=== PATIENT | female | born 1960 | race African-American/Black ===

== ENCOUNTER 2016-12-23 10:22 | Emergency (ER) | payer OTHER ==
[2016-12-23 10:36] VITALS: TEMP 98.1; BMI 28.3
--- NOTE | 2016-12-23 11:43 | PDOC ---
History of Present Illness - General History Source: Patient Exam Limitations: No Limitations - History of Present Illness Initial Comments: 12/23/16 12:01 56 y/o F with a PMHx of anxiety presents to the ED with worsening left lower extremity swelling and pain for a week. She reports that her leg is warm to touch and itchy. 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 At PCPs office she had a US to rule out DVT, which came back normal. She also had an XR done, which was normal. Patient reports the pain and swelling began at her left knee and moved down to her foot. She denies recent travel. She denies SOB, chest pain, palpitations. Denies fever chills. Denies headache, dizziness. <Danni Stapleton - Last Filed: 12/23/16 14:56> <Arina Martinez - Last Filed: 12/26/16 09:34> - General Chief Complaint: Edema Stated Complaint: LEGS SWELLING Time Seen by Provider: 12/23/16 11:28 Past History <Danni Stapleton - Last Filed: 12/23/16 14:56> - Past Medical History Psychiatric Problems: Yes (ANXEITY) - Suicide/Smoking/Psychosocial Hx Smoking History: Never smoked Have you smoked in the past 12 months: No Information on smoking cessation initiated: No Hx Alcohol Use: No Drug/Substance Use Hx: No <Arina Martinez - Last Filed: 12/26/16 09:34> - Past Medical History Allergies/Adverse Reactions: Allergies Allergy/AdvReac Type Severity Reaction Status Date / Time gluten Allergy Verified 12/23/16 10:31 pineapple Allergy Verified 12/23/16 10:31 Home Medications: Ambulatory Orders Clonazepam 0.5 mg PO HS 12/23/16 Naproxen [Naprosyn -] 500 mg PO BID 12/23/16 Review of Systems - Review of Systems Able to Perform ROS?: Yes Comments:: 12/23/16 12:02 GENERAL/CONSTITUTIONAL: No fever or chills. No weakness. HEAD, EYES, EARS, NOSE AND THROAT: No change in vision. No ear pain or discharge. No sore throat. CARDIOVASCULAR: No chest pain or shortness of breath. RESPIRATORY: No cough, wheezing, or hemoptysis. GASTROINTESTINAL: No nausea, vomiting, diarrhea or constipation. GENITOURINARY: No dysuria, frequency, or change in urination. MUSCULOSKELETAL: (+) left lower extremity pain and swelling. No neck or back pain. SKIN: (+) left lower extremity warmth and itchiness. No rash NEUROLOGIC: No headache, vertigo, loss of consciousness, or change in strength/ sensation. ENDOCRINE: No increased thirst. No abnormal weight change. HEMATOLOGIC/LYMPHATIC: No anemia, easy bleeding, or history of blood clots. ALLERGIC/IMMUNOLOGIC: No hives or skin allergy. <Fanny Stapletonobamerica Leigh - Last Filed: 12/23/16 14:56> *Physical Exam - Vital Signs Last Vital Signs Temp Pulse Resp BP Pulse Ox 98.1 F 66 18 115/57 100 12/23/16 10:33 12/23/16 10:33 12/23/16 10:33 12/23/16 10:33 12/23/16 10:33 - Physical Exam Comments: 12/23/16 12:10 GENERAL: Awake, alert, and fully oriented, in no acute distress HEAD: No signs of trauma EYES: PERRLA, EOMI, sclera anicteric, conjunctiva clear ENT: Auricles normal inspection, hearing grossly normal, nares patent, oropharynx clear without exudates. Moist mucosa NECK: Normal ROM, supple, no lymphadenopathy, JVD, or masses LUNGS: Breath sounds equal, clear to auscultation bilaterally. No wheezes, and no crackles HEART: Regular rate and rhythm, normal S1 and S2, no murmurs, rubs or gallops ABDOMEN: Soft, nontender, normoactive bowel sounds. No guarding, no rebound. No masses EXTREMITIES: LLE 2+ pitting edema to the knee with calf tenderness. DP pulses intact. Normal range of motion. No clubbing or cyanosis. No cords, erythema. NEUROLOGICAL: Cranial nerves II through XII grossly intact. Normal speech, normal gait SKIN: Warm, Dry, normal turgor, no rashes or lesions noted. <Danni Stapleton - Last Filed: 12/23/16 14:56> - Vital Signs Last Vital Signs Temp Pulse Resp BP Pulse Ox 98.1 F 66 18 115/57 100 12/23/16 10:33 12/23/16 10:33 12/23/16 10:33 12/23/16 10:33 12/23/16 10:33 <Arina Martinez - Last Filed: 12/26/16 09:34> ED Treatment Course - LABORATORY CBC & Chemistry Diagram: 12/23/16 11:35 12/23/16 11:35 - ADDITIONAL ORDERS Additional order review: 12/23/16 11:35 RBC 4.75 MCV 83.0 MCHC 32.3 RDW 13.1 MPV 7.3 L Neutrophils % 64.1 Lymphocytes % 21.3 Monocytes % 8.5 Eosinophils % 5.0 H Basophils % 1.1 - RADIOLOGY Radiograph Interpretation: 12/23/16 12:59 Vascular Study - Left Leg Reported by Dr. Renny Mayo Impression: There is no evidence of deep venous thrombosis in the left lower extremity. 12/23/16 14:57 Abdomen & Pelvis CT Reported by Dr. Ines Marie Impression: 1. No evidence of retroperitoneal mass compressing the left external iliac or common iliac vein. 2. Normal appendix. No evidence of intestinal obstruction or acute diverticulitis. Small hiatal hernia. 3. Cholelithiasis and probable gallbladder sludge. No CT evidence of acute cholecystitis or biliary ductal dilatation. <Danni Stapleton - Last Filed: 12/23/16 14:56> - LABORATORY CBC & Chemistry Diagram: 12/23/16 11:35 12/23/16 11:35 <Arina Martinez - Last Filed: 12/26/16 09:34> Medical Decision Making - Medical Decision Making Pt with previous negative duplex. Repeat exam ordered in ED, negative for DVT. At this point I discussed results with her and opted for CT a/p to r/o any abdominal mass that was potentially obstructing venous flow. CT a/p was negative. Unclear what is causing the edema. Counseled her to f/u closely with PMD and vascular for further evaluation. Also counseled her to return to ED if severe pain, worsening swelling, change in temperature or color of extremity, or any other concerns. <Arina Martinez - Last Filed: 12/26/16 09:34> *DC/Admit/Observation/Transfer - Attestations Scribe Attestion: 12/23/16 12:02 Documentation prepared by Danni Stapleton, acting as medical instrument cable fabricator for Arina Martinez MD. <Danni Stapleton - Last Filed: 12/23/16 14:56> - Discharge Dispostion Admit: No <Arina Martinez - Last Filed: 12/26/16 09:34> Diagnosis at time of Disposition: Left leg swelling - Discharge Dispostion Disposition: HOME Condition at time of disposition: Stable - Referrals Referrals: Edson Ventura MD [Primary Care Provider] - Jasbir Morris MD [Staff Physician] - - Patient Instructions Printed Discharge Instructions: DI for Peripheral Edema, Unilateral - Post Discharge Activity Forms/Work/School Notes: Back to Work
[2016-12-23 11:44] LABS: BASOPHIL 1.1 % (0-2.0); MCH 26.8 pg (25.7-33.7); MCHC 32.3 g/dl (32.0-36.0); MEAN PLT VOLUME 7.3 fl (7.5-11.1); NEUTROPHILS 64.1 % (42.8-82.8); PLATELET COUNT 286 K/MM3 (134-434); RDW 13.1 % (11.6-15.6)
[2016-12-23 12:01] LABS: INR 1.07 (0.82-1.09); PROTHROMBIN TIME (PATIENT) 11.8 SEC (9.98-11.88)
[2016-12-23 12:06] LABS: ALBUMIN 3.9 g/dl (3.4-5.0); ANION GAP 5 (8-16); CALCIUM 8.8 mg/dL (8.5-10.1); CO2 32 mmol/L (21-32); GLUCOSE,RANDOM 81 mg/dL (74-106)
[2016-12-23 12:11] LABS: ALK PHOS 93 U/L (45-117); BILIRUBIN,TOTAL 0.8 mg/dL (0.2-1.0); CREATININE 0.6 mg/dL (0.55-1.02); SGOT/AST 16 U/L (15-37); SGPT/ALT 26 U/L (12-78); TOT PROT 6.9 g/dl (6.4-8.2)
[2016-12-23] MEDS ORDERED: SODIUM CHLORIDE 1,000 ML IV STA (13:52)
[2016-12-23 16:07] VITALS: BP 107/77; PULSE 60
== END 2016-12-23 16:09 | disposition home or self-care (01) ==
LOC: JER 10:22
PROC: 3E0337Z Introduction of Electrolytic and Water Balance Substance into Peripheral Vein, Percutaneous Approach (ICD-10-PCS; principal; 2016-12-23)
DX: R60.0 Localized edema (principal); M79.605 Pain in left leg
CPT/HCPCS: 36415; 74177-TC; 80053; 85025; 85610; 93971-TC; 99283-25

== ENCOUNTER 2018-12-11 15:17 | Emergency (ER) | payer OTHER ==
[2018-12-11 15:36] VITALS: BP 144/75; PULSE 66; TEMP 97.9; BMI 27.4
[2018-12-11] MEDS ORDERED: KETOROLAC TROMETHAMINE 30 MG/1 ML VIAL IM ONE (16:27)
[2018-12-11] MEDS ORDERED: KETOROLAC TROMETHAMINE 30 MG/1 ML VIAL ONE (16:33)
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
== END 2018-12-11 17:51 | disposition home or self-care (01) ==
LOC: JERFT 15:17
PROC: 3E0233Z Introduction of Anti-inflammatory into Muscle, Percutaneous Approach (ICD-10-PCS; principal; 2018-12-11)
DX: S13.4XXA Sprain of ligaments of cervical spine, initial encounter (principal); V49.49XA Driver injured in collision with other motor vehicles in traffic accident, initial encounter; Y92.414 Local residential or business street as the place of occurrence of the external cause; Y93.89 Activity, other specified; Y99.8 Other external cause status
CPT/HCPCS: 99281-25

== ENCOUNTER 2022-09-02 00:09 | Emergency (ER) | payer OTHER ==
[2022-09-02 00:20] VITALS: BP 112/75; PULSE 96; RESP 18; TEMP 98; BMI 26.9
[2022-09-02] MEDS ORDERED: BACITRACIN ZINC 15 GM TUBE TOPICAL OINTMENT TP ONE (01:12)
[2022-09-02] MEDS ORDERED: BACITRACIN 0.9 GM PACKET ONE (01:23)
== END 2022-09-02 01:32 | disposition home or self-care (01) ==
LOC: JER 00:09
DX: T23.212A Burn of second degree of left thumb (nail), initial encounter (principal); T23.222A Burn of second degree of single left finger (nail) except thumb, initial encounter; T31.0 Burns involving less than 10% of body surface; X19.XXXA Contact with other heat and hot substances, initial encounter; Y92.008 Other place in unspecified non-institutional (private) residence as the place of occurrence of the external cause
CPT/HCPCS: 99283-25

== ENCOUNTER 2023-03-02 04:13 | Emergency (ER) | payer OTHER ==
[2023-03-02 04:20] VITALS: RESP 18; BMI 26.2
[2023-03-02] MEDS ORDERED: FAMOTIDINE 20 MG/50 ML IVPB 20 MG/50 ML MG IVPB ONE ×2 (05:39→06:04)
[2023-03-02] MEDS ORDERED: diphenhydrAMINE HCL 25 MG CAPSULE (FP) PO ONE ×2 (05:40→06:03)
[2023-03-02] MEDS ORDERED: MAG HYDROX/AL HYDROX/SIMETH 30 ML UNIT-DOSE CUP PO ONE (05:41)
[2023-03-02] MEDS ORDERED: metroNIDAZOLE 250 MG TABLET PO ONE (05:48)
[2023-03-02] MEDS ORDERED: MAG HYDROX/AL HYDROX/SIMETH 30 ML UNIT-DOSE CUP ONE (06:04)
[2023-03-02] MEDS ORDERED: metroNIDAZOLE 250 MG TABLET ONE (06:07)
[2023-03-02 06:38] LABS: BASO % 1.1 % (0-2.0); EOS % 7.3 % (0-4.5); HEMATOCRIT 42.4 % (32.4-45.2); HEMOGLOBIN 13.4 GM/dL (10.7-15.3); MCH 26.5 pg (25.7-33.7); MCHC 31.5 g/dl (32.0-36.0); MEAN CELL VOLUME 84.3 fl (80-96); MEAN PLT VOLUME 7.7 fl (7.5-11.1); MONO % 7.9 % (3.8-10.2); NEUT % 64.7 % (42.8-82.8); PLATELET COUNT 292 10^3/uL (134-434); RBC 5.03 M/mm3 (3.60-5.2); RDW 13.6 % (11.6-15.6); WHITE BLOOD COUNT 6.7 K/mm3 (4.0-10.0)
[2023-03-02 07:15] LABS: POTASSIUM 4.2 mmol/L (3.5-5.1)
[2023-03-02 07:17] LABS: ALBUMIN 3.5 g/dl (3.4-5.0); CALCIUM 8.5 mg/dL (8.5-10.1)
[2023-03-02 07:20] LABS: CREATININE 0.7 mg/dL (0.55-1.3)
[2023-03-02 07:22] LABS: BILIRUBIN,TOTAL 0.4 mg/dL (0.2-1); TOT PROT 7.1 g/dl (6.4-8.2)
[2023-03-02 08:38] VITALS: TEMP 98.7
[2023-03-02 11:36] VITALS: BP 107/66; PULSE 67
== END 2023-03-02 09:58 | disposition home or self-care (01) ==
LOC: JER 04:13
PROC: 3E033GC Introduction of Other Therapeutic Substance into Peripheral Vein, Percutaneous Approach (ICD-10-PCS; principal; 2023-03-02)
DX: R07.2 Precordial pain (principal)
CPT/HCPCS: 36415; 71046-TC-FY; 80053; 84484; 85025; 93005; 93010; 99285-25